=== PATIENT | female | born 1990 ===

== ENCOUNTER 2019-08-17 19:30 | Outpatient (CLI) | payer OTHER | END 2019-08-17 19:31 | disposition home or self-care (01) | LOC: SLEEPLAB 19:30 | PROVIDERS: ATTEND Internal Medicine | DX: G47.33 Obstructive sleep apnea (adult) (pediatric) (principal); R53.83 Other fatigue; R06.83 Snoring; G47.00 Insomnia, unspecified; G47.10 Hypersomnia, unspecified; J30.2 Other seasonal allergic rhinitis | CPT/HCPCS: 95810 ==